=== PATIENT | female | born 1990 | race Two or more races ===

== ENCOUNTER 2025-08-22 13:33 | Outpatient (REF) | payer BC, SELFPAY ==
--- OUTSIDE RECORDS SUMMARY | 2025-08-20 21:06 | XMS_ITS | Continuity of Care Document ---
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 Role Phone Not on Staff, PCP Primary Care Physician Unavail able Encounter [facility] Date(s): 08/20/25 - 08/20/[address] [id number]- Encounter Diagnosis Migraine headache(Final) - 08/20/25 Vertigo, benign positional(Final) - 08/20/25 Discharge Disposition: A-D/C Home Attending Physician: Lisa Lutz MD Admitting Physician: Lisa Lutz MD Referring Physician: Not on Staff, Referring MD Encounter Type: Disch ES Allergies, Adverse Reactions, Alerts No Known Allergies Medications meclizine 25 mg oral tablet 1 tablet = 25 mg, By Mouth, 3 times a day, PRN for dizziness, # 30 tablet, 0 Refills, Maintenance, 08/20/25 8:37:00 PM EST, Tablet, [id number], Partial fill upon patient request if the prescription is for a schedule II opioid drug., 158, cm, 08/20/25 11:55:00 EST, Height, 100, kg, 08/20/25 11:55:00 EST, Dry Weight Start Date: 08/20/25 Status: Ordered Medication Dispense Status: Completed Quantity: 30.0 Unit: tablet Total Allowed Fills: 1 Fills Dispensed: 0 Mental Status Mental Status Assessment Assessment Assessment Component Result Effecti ve Date [place] coma score total 15 08/20/25 Problem List Condition Confirmation Course Effective Dates Status Health St atus Informant Severe obesity Confirmed Active Vital Signs Most recent to oldest [Reference Range]: 1 2 3 Height 158 cm (08/20/25 8:53 PM) 158 cm (08/20/25 11:55 AM) Weight 100 kg (08/20/25 8:53 PM) 100 kg (08/20/25 11:55 AM) Oxygen Saturation [94-100 %] 100 % (08/20/25 8:53 PM) 100 % (08/20/25 11:55 AM) 99 % (08/20/25 11:52 AM) Pulse Rate [55-90 bpm] 79 bpm (08/20/25 8:53 PM) 100 bpm *H* (08/20/25 11:55 AM) 118 bpm *H* (08/20/25 11:52 AM) Body Mass Index [18.5-24.99 kg/m2] 40.06 kg/m2 *H* (08/20/25 8:53 PM) 40.06 kg/m2 *H* (08/20/25 11:55 AM) Blood Pressure [90-138/55-84 mm Hg] 148/90mm Hg *H* (08/20/25 8:53 PM) 161/102mm Hg *H* (08/20/25 11:55 AM) Respiratory Rate [16-30 br/min] 18 br/min (08/20/25 8:53 PM) 18 br/min (08/20/25 11:55 AM) 18 br/min (08/20/25 11:52 AM) Temperature [96.8-100.4 DegF] 98.2 DegF (08/20/25 11:55 AM) Mode of Delivery (Oxygen) Room air (08/20/25 8:53 PM) Room air (08/20/25 11:55 AM) Room air (08/20/25 11:52 AM) Blood pressure sites Arm, left (08/20/25 8:53 PM) Arm, left (08/20/25 11:55 AM) Temperature Route Oral (08/20/25 11:55 AM) Dry Weight 100 kg (08/20/25 8:53 PM) 100 kg (08/20/25 11:55 AM) Weight Obtained Via Patient/family state d (08/20/25 11:55 AM) Dry Weight Obtained Via Patient/family s tated (08/20/25 11:55 AM) Social History Social History Type Response Sex Sex Representation Female (finding) Status Not Note * Brigette Gamboa: PERFORM Event Display: Patient Education Leaflets Authored Date: [id number] [facility] - If you need a Doctor or Clinic ?? 34 If You Need a Doctor or Clinic ?? Call [facility] PCP Assignment Line to help you find a doctor:?? [phone] ?? Clinics in [place], [place] For a full list of clinics:? [email or web address] ?? [facility]? [address] [phone] [facility]?[address]?[phone] [place] [address]?[address][phone] [facility]?[address][phone] [facility]?[address] [phone] [facility]?[address][phone] [facility], [facility]?[address][phone] [facility]?[address] [phone] [facility]? [address][phone] 4 [facility]?[address][phone] [facility]?[address][phone] [facility]?[address][phone] [facility]?[address][phone] [facility]? [address][phone] [facility]?[address][phone] ? * Brigette Gamboa: PERFORM Event Display: Patient Education Leaflets Authored Date: [id number] Migraine Headache ?? [id number] Migraine Headache A migraine headache is a type of headache that's often severe. It's different from other types of headaches because symptoms other than pain occur with it. For example, with a classic migraine headache visual symptoms (or aura), such as flashes of light, blind spots, or other vision changes, warn you a headache is coming on. Nausea and vomiting, lightheadedness, sensitivity to light or sound, andother visual problems are common migraine symptoms.??Talk to your health care provider to learn more about symptoms. The pain from a migraine may last from a few hours to several days. Migraine headaches affect women3 times more than men. It's not clear why migraines occur, but certain factors called triggers can raise the risk of having a migraine attack.??Migraine triggers include: ??? Emotional stress??or depression. ??? Hormone changes during the menstrual cycle. ??? Certain control pills. ??? Overuse of migraine medicines. ??? Alcohol or caffeine. ??? Foods with tyramine (see below for examples). ??? Eyestrain. ??? Weather changes. ??? Missed meals. ??? Too little sleep or too much sleep. Home care Follow these tips when taking care of yourself at home: ??? Don???t drive yourself home if you weregiven pain medicine for your headache or are having visual symptoms. Instead, have someone else drive you home. Try to sleep when you get home. You should feel much better when you wake up. ??? Cold can help ease migraine symptoms. Put an ice pack wrapped in a thin towel on your forehead or at the base of your skull. Put heat on the back of your neck to help ease any neck spasms. ??? Drink only clear liquids or eat a light diet until your symptoms get better. This will help you prevent nausea and vomiting. ?? How to prevent migraines Pay attention to what seems to cause your headache. Try to stay away from the triggers when you can. If you have headaches often, consider keeping a headache diary. In it, write down what you were doing, feeling, or eating in the hours before each headache. Show this to your health care provider tohelp find the cause of your headaches. If stress seems to be a trigger for your headaches, figure out what is causing stress in your life.Learn new ways to handle your stress. Ideas include regular exercise, biofeedback, self-hypnosis, yoga, and meditation. Talk with your provider to find out more information about managing stress. Many books and digital media are also available on this subject. Tyramine is a substance found in many foods. It can set off a migraine in some people. Foods that contain tyramine include: ??? Chocolate. ??? Yogurt. ??? All cheeses, but especially aged cheeses. ??? Smoked or pickled fishand meat, including glover, caviar, bologna, pepperoni, and salami. ??? Liver. ??? Avocados. ??? Bananas. ??? Figs. ??? Raisins. ??? Red wine. Try staying away from these foods for 1 to 2 months to see if you have fewer headaches. ?? How to treat future headaches ??? At the first sign of a headache, find a quiet, dark, comfortable place to sit or lie down. Let yourself relax or sleep. ??? Put an ice pack wrapped in a thin towel on your forehead or the area of greatest pain. A heating pad and massage may help if you are having amuscle spasm and tightness in your neck. ??? If you have been prescribed a medicine to stop a migraine headache, use this at the first warning sign of the headache for best results. The first signs may be an aura or pain. ??? If you have been prescribed a medicine, it's important to take it as directed. Many of these medicines may take a few weeks to start preventing headaches. So it's important to not give up on them right away. If you have taken these medicines for a while and you continue tohave just as many headaches, talk with your health care provider. The dose may need to be changed or you may need a different medicine. ??? If you need to take medicine often for your migraine, talk with your provider about other ways to prevent your headaches. ?? Follow-up care Follow up with your health care provider as advised. Talk with your provider if you have frequent headaches. They can figure out a treatment plan. Ask if you can have medicine to take at home the next time you get a bad headache. This may keep you from having to visit the emergency department in the future. You may need to see a headache specialist (neurologist) if you continue to have headaches. ?? When to get medical care Contact your health care provider right away??if any of these occur: ??? Head pain that gets worse,or doesn???t get better within 24 hours ??? Can???t keep liquids down (repeated vomiting) ??? Pain in your sinuses, ears, or throat ??? Fever of 100.4?? F (38?? C) or higher, or as advised by your provider ??? Stiff neck ??? Extreme drowsiness, confusion, or fainting ??? Dizziness, or dizziness with spinning sensation (vertigo) ??? Weakness or trouble feeling in an arm or leg, or on one side of your face ??? Trouble talking or seeing ?? Last Reviewed Date: 2025 00:00:00 ?? [id number] [employer]. All rights reserved. This information is not intended as a substitute for professional medical care. Always follow your healthcare professional's instructions. ?? * Keshawn MONTANO, Brigette Pretty: PERFORM Event Display: Patient Education Leaflets Authored Date: [id number] Benign Paroxysmal Positional Vertigo ?? [id number] Benign Paroxysmal Positional Vertigo Benign paroxysmal positional vertigo (BPPV) is a common condition. You feel as if the room is spinning after changing position, moving your head quickly, or even just rolling over in bed. Vertigo is a false feeling of motion plus disorientation that makes it seem as if the room is spinning. A vertigo attack may cause sudden nausea, vomiting, and heavy sweating. Severe vertigo causes aloss of balance. You may even fall down. Vertigo is caused by a problem with the inner ear. The inner ear is located behind the middle ear. It is a part of the balance center of the body. Vertigo can happen when small calcium stones move into an area of your inner ear called the semicircular canal. This may happen as a result of aging, head injury, or disease of the inner ear. Once that happens, moving your head in certain ways may cause the particles to stimulate the inner ear. This creates the feeling of vertigo. An episode of vertigo lasts only a few seconds to minutes. Once you are over the first episode of vertigo, it may never return. Sometimes symptoms return off and on for several weeks or longer. BPPV is treatable. The Umair maneuver is a simple treatment for the common cause of vertigo. Your doctor may try to put the calcium particles back in their correct position by having you do a series of head movements. Your doctor may have you do other types of maneuvers, depending on which canals the crystals are in. Home care Follow these guidelines when caring for yourself at home: ??? Rest quietly in bed if your symptoms are severe. Change position slowly. There is usually one position that will feel best. This might belying on one side or lying on your back with your head slightly raised on pillows. Until you have no symptoms, you are at a higher risk of falling. Let someone help you when you get up. Get rid of home hazards such as loose electrical cords and throw rugs. Don???t walk in unfamiliar areas that aren't lighted. Use night-lights in bathrooms and kitchen areas. ??? Don't drive or work with dangerous machinery for 1 week after symptoms go away, or as directed by your doctor. This is in case symptomsreturn suddenly. ??? Try repositioning maneuvers at home if your doctor instructs you to do so. ?? Follow-up care Follow up with your doctor or an ear, nose, and throat specialist (ENT or utilization engineer), or as directed. Tell your doctor about any ringing in your ear or hearing loss. If you had a CT or MRI scan, a specialist will review it. You'll be told of any new findings that may affect your care. ?? When to contact your doctor Contact your doctor right away if: ??? Your vertigo gets worse. ??? You have repeated vomiting. ???You have weakness that gets worse. ??? You have trouble hearing. ??? You have a fever of 100.4??F (38??C) or higher, or as directed by your doctor. ?? Call 911 Call 911 right away if: ??? You faint. ??? You have a severe headache, confusion, or abnormal drowsiness. ??? You have weakness of an arm or leg or one side of the face. ??? You have trouble??with speech or vision. ??? You have trouble walking. ??? You have a seizure. ??? You have a fast heart rate. ??? You have chest pain. ??? You are short of breath. ?? Last Reviewed Date: 2025 00:00:00 ?? [id number] [employer]. All rights reserved. This information is not intended as a substitute for professional medical care. Always follow your healthcare professional's instructions. ?? Patient Care team information Care Team Personnel Name: Not on Staff, PCP Position: S Physician (General Medicine) Member Role: PCP Insurance Providers Guarantor name: [employer] Information #: 1 Payer: [employer] Payer Identifier: Member Number: [id number] Group Number: [id number] Subscriber Identifier: [id number] Relationship to Subscriber: self Coverage Type: NA Coverage Verification Date: Telecom: Address: [facility] Information #: 2 [facility] [employer] [employer] Payer Identifier: Member Number: [id number] Group Number: Subscriber Identifier: [id number] Relationship to Subscriber: self Coverage Type: MEDICAID Coverage Verification Date: Telecom: Address:
[2025-08-22 17:53] LABS: Appearance Urine Cloudy; Glucose Urine UA Negative (Negative); PH 6.0 (5.0-9.0); Specific Gravity - Urine 1.020 (1.005-1.025); UMIC TRIGGER UACC YES
[2025-08-22 17:54] LABS: MANUAL DIFF FLAG NO
[2025-08-22 18:11] LABS: Hematocrit 38.7 % (37.0-47.0); Hemoglobin 11.6 g/dl (12.0-16.0); Imm Gran Abs Auto 0.03 X10*3/uL (0.00-0.03); Imm Gran Pct Auto 0.2 % (0.0-0.4); Lymphocytes Absolute Auto 3.5 X10*3/uL (1.2-4.9); Mean Corpuscular HGB Conc 30.0 g/dl (31.0-35.0); Mean Corpuscular Hemoglobin 23.3 pg (27.0-33.0); Mean Corpuscular Volume 77.9 fL (80.0-98.0); NRBC Abs Auto 0.000 X10*3/uL (0.0-0.012); NRBC Pct Auto 0.0 /100WBC (0.0-0.2); Platelet Count 390 X10*3/uL (160-400); Red Blood Count 4.97 X10*6/uL (4.20-5.50); White Blood Count 12.0 X10*3/uL (4.8-10.8)
[2025-08-22 18:35] LABS: Alanine Aminotransferase 20 U/L (0-31); Albumin Level 4.8 g/dL (3.5-5.0); Alkaline Phosphatase 85 U/L (39-117); Anion Gap 12 (12-20); Aspartate Amino Transferase 18 U/L (5-31); Blood Urea Nitrogen 13 mg/dL (9-16); Calcium 9.1 mg/dL (8.4-10.2); Carbon Dioxide 26 mmol/L (22-29); Chloride 106 mmol/L (96-108); Cholesterol 199 mg/dL (<200); Estimated Glomerular Filt Rate > 60; HDL Cholesterol 50 mg/dL (>40); Magnesium 2.1 mg/dL (1.6-2.6); Potassium 3.5 mmol/L (3.3-5.1); Sodium 140 mmol/L (135-145); Total Protein 7.8 g/dL (6.5-8.0); Triglycerides 115 mg/dL (<150)
[2025-08-22 19:01] LABS: Folate 10.8 ng/mL (> or = 4.0); Vitamin B12 533 pg/mL (200-900)
[2025-08-23 07:12] LABS: Total Hemoglobin (HGBA1C) 3036.8185 umol/L
[2025-08-23 10:35] LABS: HBS Num1 5.26 mIU/mL (0-7.99); HBsAGNum1 0.57 S/CO (0.00-0.99); HIV Num 1 0.07 S/CO (0.00-0.99); Hepatitis B Surface Antigen Negative (Negative); ~HepC Num1 0.07 S/CO (0.00-0.79); ~Hepatitis B Surface Antibody NONREACTIVE (Nonreactive); ~Hepatitis C Antibody Nonreactive (Nonreactive)
[2025-08-26 13:07] LABS: VITAMIN D (1,25 OH) D3 99 pg/mL; Vit D (1,25-Dihydroxy) Total 99 pg/mL (18-72); Vitamin D (1,25 OH) D2 <8 pg/mL
== END 2025-08-22 13:34 | disposition home or self-care (01) ==
LOC: HO.HKASLDS 13:33
PROVIDERS: PCP Student in an Organized Health Care Education/Training Program; Visit Provider Student in an Organized Health Care Education/Training Program
DX: R42 Dizziness and giddiness (principal); G43.109 Migraine with aura, not intractable, without status migrainosus; H53.143 Visual discomfort, bilateral; R11.0 Nausea; E78.5 Hyperlipidemia, unspecified; Z13.1 Encounter for screening for diabetes mellitus
CPT/HCPCS: 36415; 80053; 80061; 81001; 82607; 82652; 82746; 83036; 83735; 84443; 85025; 86706; 86803; 87340; 87389; 96127

== ENCOUNTER 2025-08-22 13:33 | Outpatient (AMB) | payer BC, SELFPAY ==
--- NOTE | 2025-08-22 13:38 | MHC.PC.OV ---
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 Competency Evaluated Nurse Aide Required: No Accompanied by: Self / Same As Patient Allergies No Known Allergies Allergy (Verified 08/22/25 13:39) Medication List - Last Reconciled 08/22/25 by Jose Camargo MD ondansetron 4 mg PO Q8H PRN sumatriptan succinate 50 mg orally; Tobacco use date assessed: 08/22/25 Dental Screening Dental Screen Date: 08/22/25 Did you have a dental visit in the last 12 months?: No Did you have a dental problem in the last 6 months where you did not have access to dental care?: Yes Was dental information given to patient?: No HPI HPI Comments History of Present Illness Details History of Present Illness The patient is a 35-year-old female presenting for evaluation of a migraine headache with vertigo and dizziness. Migraine with aura: The patient reports a history of migraines that began after the of her first child and have progressively worsened in severity and frequency over the years, with three debilitating episodes this year. The current episode started on the evening of August 18, accompanied by vertigo, vomiting, and nausea. She visited the emergency department two days ago, where the migraine was treated with Reglan and another unspecified medication, but she has had continued dizziness since. The patient describes an aura of neck pain, followed by a debilitating headache located retro-orbitally and in the temples, with a pain score way beyond 10. Associated symptoms include photophobia and phonophobia, requiring her to lie down in a dark room for a full day. She reports feeling sluggish with a poor appetite since the onset. Prior management has been limited to [id number] medications such as Tylenol, Excedrin, and ibuprofen up to 600 mg, which provide minimal relief. She has never used triptan medications, as her migraines occurred during periods of and . Health Maintenance: The patient is a 35-year-old female who has not seen a doctor for routine care since her visits, with her last visit being approximately two years ago. During her pregnancies, she was close to developing preeclampsia and gestational diabetes. Her last Pap smear was performed in 2021. Surgical History: No prior surgical history reported. Medications: - Meclizine, as needed for dizziness - Ibuprofen 400-600 mg, as needed for headache - Acetaminophen (Tylenol/Excedrin), as needed for headache - Ondansetron (Zofran), previously used for nausea Social History: - Functional Status: Reports feeling sluggish and not wanting to do much recently. - Nutritional Intake: Reports poor appetite with only small nibbles of food. - Sleep: Reports poor sleep for the past couple of days. - Family Planning: Patient reports she is done having children and her partner has had a vasectomy. Family History: No family history was discussed. Diagnostic Results: - Recent ER visit: A CBC and basic metabolic panel were performed; results were not discussed. - Recent ER visit: An EKG was performed instead of a requested CT scan; no arrhythmias were noted. Past Medical History - Migraines with aura, which began after her first child. - History of headaches in her youth. - History of pregnancies complicated by being close to developing preeclampsia and gestational diabetes. - Denies history of hypertension, diabetes, seizures, or heart disease. - Last Pap smear was in 2021. - Received Reglan and another unspecified medication during an ER visit two days prior. Health Maintenance - Comprehensive blood work, including CBC, CMP, HbA1c, lipid panel, thyroid panel, B12, folate, vitamin D, and hepatitis screening, is ordered for today. - A referral will be placed for a routine Pap smear. - The patient is instructed to establish a patient portal account for communication. - Follow up in two weeks to review lab results and reassess symptoms. [facility] [place] Medical History (Updated 08/22/25 @ 14:27 by Jose Camargo MD) Cervical cancer screening Migraine Family History (Updated 08/22/25 @ 13:55 by Pipe Dimas MA) Father No problems noted. Mother Breast cancer Diabetes Depression Anxiety Social History Housing: House Patient Tobacco Use Status: Never used Tobacco service: No Current occupational status: unemployed Cognitive needs: No Hearing needs: No Vision needs: Yes (glasses for driving) Questionnaire PHQ-9 Over the last 2 weeks, how often have you been bothered by any of the following problems? 1. Little interest or pleasure in doing things: several days 2. Feeling down, depressed, or hopeless: several days 3. Trouble falling or staying asleep, or sleeping too much: several days 4. Feeling tired or having little energy: several days 5. Poor appetite or overeating: several days 6. Feeling bad about yourself - or that you are a failure or have let yourself or your family down: not at all 7. Trouble concentrating on things, such as reading the newspaper or watching television: several days 8. Moving or speaking so slowly that other people could have noticed. Or the opposite - being so fidgety or restless that you have been moving around a lot more than usual: several days 9. Thoughts that you would be better off or of hurting yourself in some way: not at all Total score: 7 Depression Screening Interpretation: Negative Depression Screening Done: Yes Source: Developed by Drs. Peter Worley, Soledad May, Raul Mckinley and colleagues, with an educational maria elena from [employer]. Thrive Questionnaire Date Thrive assessed: 08/22/25 I am a: Patient What is your living situation today?: I have a steady place to live Within the past 12 months, did the food you bought not last and you didn't have the money to get more?: Never true Within the past 12 months, did you worry whether your food would run out before you got money to buy more?: Never true Do you have trouble paying for medicines?: No Do you have trouble getting transportation to medical appointments?: No Do you have trouble paying your heating and electricity bill?: No Do you have trouble taking care of your child, family member or friend?: No Are you currently unemployed and looking for a job?: I choose not to answer this question Are you interested in more education?: I choose not to answer this question Please select the resources that you would like help with: None Currently or been in a relationship where the following occur: No concerns reported THRIVE Score: 0 AUDIT C Alcohol Use Questionnaire (AUDIT-C) 1. How often do you have a drink containing alcohol?: Monthly or less 2. How many drinks containing alcohol do you have on a typical day when you are drinking?: 1 or 2 3. How often do you have six or more drinks on one occasion?: Never Total Score: 1 MELODY-7 AMB Questionnaire MELODY-7 Feeling nervous, anxious, or on edge: 1 = Several days Not being able to stop or control worryin = Not at all Worrying too much about different things: 0 = Not at all Trouble relaxin = Not at all Being so restless that it is hard to sit still: 0 = Not at all Becoming easily annoyed or irritable: 0 = Not at all Feeling afraid as if something awful might happen: 0 = Not at all Total MELODY-7 score (0-4 normal; 5-9 mild; 10-14 moderate; 15-21 severe): 1 Source: Developed by Drs. Peter Worley, Soledad May, Raul Mckinley and colleagues, with an educational maria elena from [employer]. Review of Systems Narrative Review of Systems - Constitutional: Reports feeling sluggish and sleeping poorly. Denies fevers. - Neurological: Reports headache, dizziness, vertigo, and neck pain. Denies seizures. - HEENT: Reports photophobia and phonophobia. - Cardiovascular: Denies chest pain or arrhythmias. - Gastrointestinal: Reports nausea, vomiting, and poor appetite. - Musculoskeletal: No lower extremity swelling reported. 10-point ROS reviewed and negative except as noted in HPI Physical exam (Primary Care) Vital Signs: Last Vital Signs Temp 98.7 F 08/22/25 13:53 Pulse 83 08/22/25 13:53 Resp 16 08/22/25 13:53 BP 131/76 08/22/25 13:53 Pulse Ox 97 08/22/25 13:53 Oxygen Delivery Method Room Air 08/22/25 13:53 BMI result Body Mass Index 36.3 Tobacco/Smoking Status: Tobacco use Status Tobacco use date assessed 08/22/25 08/22/25 13:41 Patient Tobacco Use Status Never used Tobacco 08/22/25 13:41 PHQ-9: PHQ-9 Score PHQ-9: Total score 7 08/22/25 13:41 Depression Screening Interpretation: Negative Thrive Assessment: Date of Thrive Assessment Date Thrive assessed 08/22/25 08/22/25 13:41 Currently or been in a relationship where the following occur: No concerns reported Narrative Physical Exam General: Well-appearing, in no acute distress. Vital signs: Within normal limits. HEENT: Normocephalic, atraumatic. PERRLA, EOMI. Conjunctiva clear, sclera anicteric. Oropharynx clear, mucous membranes moist. TMs intact bilaterally. Neck: Supple, no lymphadenopathy, no thyromegaly, no JVD or carotid bruits. Cardiovascular: RRR, normal S1/S2, no murmurs, rubs, or gallops. Peripheral pulses 2+ and symmetric. No edema. Respiratory: Lungs clear to auscultation bilaterally, no wheezes, rales, or rhonchi. Normal effort. Abdomen: Soft, non-tender, non-distended. Normoactive bowel sounds. No hepatosplenomegaly, no masses. MSK: Full range of motion, no joint swelling or deformity. Normal gait. Skin: Warm, dry, intact. No rashes, lesions, or pallor. Neuro: Alert and oriented x3. Cranial nerves II-XII intact. Strength 5/5 throughout. Sensation intact. Reflexes 2+ symmetric. Normal coordination and gait. Psych: Appropriate mood and affect. Normal judgment and insight. Coding Level of Care Code New Pt Level 4 ([id number]) Diagnoses Migraine G43.909 Cervical cancer screening Z12.4 Photophobia of both eyes H53.143 Vertigo R42 Nausea R11.0 Assessment & Plan Assessment & Plan (1) Migraine: Code(s): G43.909 - Migraine, unspecified, not intractable, without status migrainosus Category: Medical (2) Cervical cancer screening: Code(s): Z12.4 - Encounter for screening for malignant neoplasm of cervix Category: Medical (3) Photophobia of both eyes: Code(s): H53.143 - Visual discomfort, bilateral (4) Vertigo: Code(s): R42 - Dizziness and giddiness (5) Nausea: Code(s): R11.0 - Nausea Plan Consent The proposed plan of care, including new medications and comprehensive lab work, was discussed with the patient. The patient and her partner verbalized understanding and agreement with the plan. Patient was informed and verbally consented to the use of an ambient scribe for clinic note documentation during this visit. Plan 1. Migraine With Aura - Will prescribe sumatriptan 50 mg for abortive migraine therapy. The patient is instructed to take one tablet at onset and may repeat the dose after two hours if needed, not to exceed 200 mg in a 24-hour period. - A prescription for Zofran (ondansetron) will be sent to the pharmacy for nausea. - The patient can continue taking meclizine, which she received from the ER, for dizziness. - Prophylactic medication, such as topiramate or propranolol, will be considered at follow-up. - A CT scan of the head is not indicated at this time in the outpatient setting. Discussion Notes I have diagnosed the patient with migraine with aura, based on her classic presentation of neurological symptoms preceding a debilitating headache. We discussed initiating abortive therapy with sumatriptan 50 mg, and I educated her on the dosing, including the option to repeat the dose after two hours if ineffective, with a maximum daily dose of 200 mg. I will also prescribe ondansetron for nausea. Regarding her concern about not receiving a CT scan in the ER, I explained that while it might have been reasonable in that acute setting, it is not clinically indicated now given her non-focal neurological exam. I recommended comprehensive lab work to establish a baseline and a referral for a routine Pap smear for health maintenance. I advised her to set up a patient portal account for easy communication and to follow up in two weeks to review the test results and re-evaluate her migraines. The patient and her partner verbalized understanding and agreement with the plan. Patient Instructions - Take one sumatriptan 50 mg tablet at the start of a migraine headache. You can take a second tablet two hours later if the first one does not help. Do not take more than 200 mg (four 50 mg tablets) in a 24-hour period. - A prescription for Zofran will be sent to your pharmacy for nausea. - You can continue to take the meclizine you were given for dizziness as needed. - Please go to the lab next to our office today to have your blood drawn. - Our office will refer you for a Pap smear. - Please set up your patient portal account to communicate with our office. - Schedule a follow-up visit in two weeks to review your lab results. Medical Decision Making The patient is a 35-year-old female presenting as a new patient for evaluation of a recent severe headache episode. Her clinical history of progressively worsening headaches, with aura (neck pain), photophobia, phonophobia, and associated nausea/vomiting, is classic for migraine with aura. Given the debilitating nature of her symptoms and the failure of [id number] analgesics, initiating abortive therapy with a triptan is warranted. Sumatriptan 50 mg is an appropriate choice, as she has no reported contraindications, such as a history of hypertension or heart disease. Associated symptoms of nausea and persistent dizziness will be managed with ondansetron and continuation of the meclizine she received from the ER. Although a head CT was requested at the ER, her current non-focal neurological exam and typical migraine history do not support the need for urgent neuroimaging in the outpatient setting. Comprehensive lab work is indicated to establish a baseline for this new patient and screen for any underlying contributors to her symptoms or general health status. Routine health maintenance, including a Pap smear referral, is also appropriate. Follow-up in two weeks is planned to assess her response to treatment and review lab results, at which time the need for prophylactic migraine medication can be determined. Total time spent caring for the patient today was 30 minutes. This includes time spent before the visit reviewing the chart, time spent documenting, and time spent reviewing laboratory results, diagnostic imaging, medications, performing a medically necessary evaluation, counseling on diagnoses, care coordination. Orders: Orders Complete Blood Count Auto Diff Today Z13.9 - Encounter for screening, unspecified Hepatitis B Surface Antigen Today Z13.9 - Encounter for screening, unspecified Hepatitis C Antibody Today Z13.9 - Encounter for screening, unspecified Vitamin B12 and Folate Today Z13.9 - Encounter for screening, unspecified HIV Ab/Ag Today Z13.9 - Encounter for screening, unspecified Magnesium Today Z13.9 - Encounter for screening, unspecified Comprehensive Met. 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
[2025-08-22 13:53] VITALS: BP 131/76; PULSE 83; RESP 16; TEMP 37.1; O2SAT 97; BMI 36.3
== END 2025-08-22 14:25 | disposition home or self-care (01) ==
LOC: HO.HMCFMS 13:34
PROVIDERS: Visit Provider Student in an Organized Health Care Education/Training Program
DX: G43.909 Migraine, unspecified, not intractable, without status migrainosus (principal); Z12.4 Encounter for screening for malignant neoplasm of cervix; H53.143 Visual discomfort, bilateral; R42 Dizziness and giddiness; R11.0 Nausea

== ENCOUNTER 2025-09-13 14:02 | Outpatient (AMB) | payer BC, SELFPAY ==
--- NOTE | 2025-09-13 14:10 | A.OFFPC_ITS ---
Vital Signs 09/13/25 14:15 Height 5 ft 4.17 in Weight 217 lb BMI 37.0 BP 125/61 Blood Pressure Location Lt brachial Position Sitting Respiration 16 Pulse 79 Pulse Source Monitor Temp 98.3 F Temp Source Oral Pulse Oximetry (%) 98 Oxygen Delivery Method Room Air Intake Visit Reasons: r/s from 09/06/25 - lab review Intake Note: lab review, patient is still having an earache Rn Prior Authorization Required: No Accompanied by: Self / Same As Patient Allergies No Known Allergies Allergy (Verified 09/13/25 14:13) Medication List - Last Reconciled 09/13/25 by Jose Camargo MD ascorbic acid (vitamin C) 500 mg PO DAILY ferrous sulfate 325 mg PO DAILY ondansetron 4 mg PO Q8H PRN sumatriptan succinate 50 mg PO Q2-4H PRN Tobacco use date assessed: 08/22/25 Dental Screening Dental Screen Date: 08/22/25 HPI HPI Comments History of Present Illness Details History of Present Illness The patient is a 35 year old individual presenting for review of laboratory results. Iron deficiency anemia: The patient has a history of iron deficiency during and reports being a heavy bleeder during menstrual cycles. Hyperlipidemia: Recent lab results show an LDL cholesterol of 126 mg/dL and total cholesterol of 199 mg/dL. The patient acknowledges a diet that includes cheese. Otalgia (ear ache): The patient reports a bothersome ache in the left ear, which was also noted during previous migraine episodes. The pain is primarily felt when outside and is rated as a 4-5 out of 10 on the pain scale at its worst. The patient has not taken any medication for the ear pain. Headache: The patient reports a history of migraines but states current headaches are less severe and not migrainous in nature. Social History: - Diet: The patient's diet includes tito se. Diagnostic Results: - CBC: Shows an elevated white blood yanna l count. - Red blood cell indices (MCV, MCH) are indicative of iron deficiency anemia. - BMP: Electrolytes and kidney function are good. - Glucose: Random glucose and Hemoglobin A1c are within normal limits. - Minerals: Calcium and magnesium are go od. - LFTs: ALT and AST are noted to be grea t. - Lipid Panel: Total cholesterol is 199 mg/dL, LDL is 126 mg/dL, and HDL is 50 mg/dL. - Vitamin D: Level is elevated at 99 (ra nge 18-72). - Folate and Thyroid function: Levels ar e good. - Urinalysis: Trace leukocyte esterase n oted. - Infectious Disease Screen: Hepatitis B , Hepatitis C, and HIV are negative. Past Medical History - Iron deficiency anemia during pregnanc y - Migraines Health Maintenance - Discussed laboratory results, includin g indicators for iron deficiency anemia and elevated LDL cholesterol. - Recommended dietary changes, including reducing cheese intake and increasing consumption of iron-rich foods such as broccoli, spinach, liver, beans, and lentils. - Recommended follow-up labs in 3 to 6 m [facility]. [facility] Medical History (Updated 09/13/25 @ 14:18 by Jose Camargo MD) Class 2 obesity Hypervitaminosis D Iron deficiency anemia Hyperlipidemia Cervical cancer screening Migraine Family History Father No problems noted. Mother Breast cancer Diabetes Depression Anxiety Social History (Updated 09/13/25 @ 14:15 by Joe Schwartz CMA) Housing: House Alcohol intake: current Comment: sometimes Patient Tobacco Use Status: Never used Tobacco e-Cigarette/Vaping Use: Never Used Substance Use Type: Marijuana service: No Current occupational status: unemployed Cognitive needs: No Hearing needs: No Vision needs: Yes (glasses for driving) Questionnaire Thrive Questionnaire Date Thrive assessed: 08/22/25 I am a: Patient What is your living situation today?: I have a steady place to live Within the past 12 months, did the food you bought not last and you didn't have the money to get more?: Never true Within the past 12 months, did you worry whether your food would run out before you got money to buy more?: Never true Do you have trouble paying for medicines?: No Do you have trouble getting transportation to medical appointments?: No Do you have trouble paying your heating and electricity bill?: No Do you have trouble taking care of your child, family member or friend?: No Are you currently unemployed and looking for a job?: I choose not to answer this question Are you interested in more education?: I choose not to answer this question Please select the resources that you would like help with: None Currently or been in a relationship where the following occur: No concerns reported THRIVE Score: 0 Review of Systems Narrative Review of Systems - Constitutional: Denies symptoms of infection. - Neurological: Reports having headaches, but they are not migraines. - ENT: Reports an ache in the left ear. - Denies ringing in the ears or dizziness. - Genitourinary: Reports heavy menstrual bleeding. - Denies dysuria, urinary frequency, or malodorous urine. 10-point ROS reviewed and negative except as noted in HPI Physical exam (Primary Care) BMI result Body Mass Index 37.0 Tobacco/Smoking Status: Tobacco use Status Tobacco use date assessed 08/22/25 09/13/25 14:10 Patient Tobacco Use Status Never used Tobacco 09/13/25 14:15 Thrive Assessment: Date of Thrive Assessment Date Thrive assessed 08/22/25 09/13/25 14:10 Currently or been in a relationship where the following occur: No concerns reported Narrative Physical Exam General: Well-appearing, in no acute distress. Vital signs: Within normal limits. HEENT: Normocephalic, atraumatic. PERRLA, EOMI. Conjunctiva clear, sclera anicteric. Oropharynx clear, mucous membranes moist. TMs intact bilaterally. Note: Patient reports left ear ache with pain rated at 5/10, especially when outside. No ringing or dizziness reported. Neck: Supple, no lymphadenopathy, no thyromegaly, no JVD or carotid bruits. Cardiovascular: RRR, normal S1/S2, no murmurs, rubs, or gallops. Peripheral pulses 2+ and symmetric. No edema. Respiratory: Lungs clear to auscultation bilaterally, no wheezes, rales, or rhonchi. Normal effort. Abdomen: Soft, non-tender, non-distended. Normoactive bowel sounds. No hepatosplenomegaly, no masses. MSK: Full range of motion, no joint swelling or deformity. Normal gait. Skin: Warm, dry, intact. No rashes, lesions, or pallor. Neuro: Alert and oriented x3. Cranial nerves II-XII intact. Strength 5/5 throughout. Sensation intact. Reflexes 2+ symmetric. Normal coordination and gait. Psych: Appropriate mood and affect. Normal judgment and insight. Coding Level of Care Code Est Pt Level 3 (56705) Diagnoses Hyperlipidemia E78.5 Iron deficiency anemia D50.9 Hypervitaminosis D E67.3 Class 2 obesity E66.812 Migraine G43.909 Assessment & Plan Assessment & Plan (1) Hyperlipidemia: Code(s): E78.5 - Hyperlipidemia, unspecified Category: Medical (2) Iron deficiency anemia: Code(s): D50.9 - Iron deficiency anemia, unspecified Category: Medical (3) Hypervitaminosis D: Code(s): E67.3 - Hypervitaminosis D Category: Medical (4) Class 2 obesity: Code(s): E66.812 - Obesity, class 2 Category: Medical (5) Migraine: Code(s): G43.909 - Migraine, unspecified, not intractable, without status migrainosus Category: Medical Plan Consent Patient was informed and verbally consented to the use of an ambient scribe for clinic note documentation during this visit. Plan 1. Iron Deficiency Anemia - Initiate supplementation with iron and vitamin C. - Educated the patient on taking vitamin C before the iron supplement, and taking iron one hour before or two hours after a meal. - Counseled on potential side effects, including constipation and dark stools, and advised increasing fluid and fiber intake. - Advised increasing dietary intake of iron-rich foods. - Plan to repeat labs in 3 to 6 months for re-evaluation. 2. Hyperlipidemia - Recommended dietary and lifestyle changes to manage elevated LDL cholesterol. - Specifically advised the patient to reduce intake of cheese. - No medication is indicated at this time. 3. Otalgia, Left Ear - Advised trial of Tylenol or ibuprofen as needed for pain management. - Instructed the patient to return for follow-up if the ear pain continues, at which point a referral to an ENT specialist will be considered. 4. Leukocytosis And Abnormal Urinalysis - The elevated white blood cell count and trace leukocyte esterase in the urine are considered clinically insignificant as the patient is asymptomatic for infection. - No further workup or treatment is planned at this time. Discussion Notes I reviewed the patient's lab results in detail. I explained that the patient's blood work indicates iron deficiency anemia, likely related to heavy menstrual cycles, and recommended starting iron and vitamin C supplements. I provided education on how to take the supplements and potential side effects such as constipation and dark stools, and recommended increasing fluid and fiber intake. We discussed the elevated LDL cholesterol, which can be managed with dietary changes, specifically by reducing cheese consumption. I noted the elevated vitam in D and asymptomatic lab abnormalities (WBC, urinalysis) which do not require intervention at this time. Regarding the complaint of a left earache, my physical exam was normal. I advised a trial of pnue-ryq-intethh analgesics like Tylenol or ibuprofen and instructed the patient to return if symptoms persist, for a potential ENT referral. We agreed to repeat labs in 3-6 months to monitor the anemia and cholesterol. Patient Instructions - Begin taking an iron supplement with Vitamin C to treat your iron deficiency. - Take the Vitamin C first, then take the iron one hour before you eat or two hours after you eat. - The iron supplement may cause constipation and may turn your stool dark. - To help with constipation, increase the amount of water and fiber you consume. - Increase iron-rich foods in your diet, such as broccoli, spinach, liver, beans, and lentils. - To help lower your cholesterol, try to cut down on your intake of cheese. - For your earache, you may try taking Tylenol or ibuprofen for the pain. - If your earache does not get better, please come back to the clinic for a follow-up visit. - We will need to repeat your lab work in 3 to 6 months. Medical Decision Making The patient, a 35 year old individual, presented for a review of lab results. The patient's lab findings of low hemoglobin/MCV/MCH, coupled with a history of menorrhagia, support a diagnosis of iron deficiency anemia. The plan is to replete iron stores with oral supplementation and dietary counseling, with follow-up labs in 3-6 months to assess response. The patient's LDL cholesterol is mildly elevated at 126 mg/dL, which does not warrant pharmacotherapy at this time. Given the HDL of 50 mg/dL, the most appropriate initial management is lifestyle and dietary modification, focusing on reducing saturated fat intake from sources like cheese. The patient's new complaint of a left earache was evaluated. The physical examination of the ear was unremarkable. Given the normal exam, the initial plan is symptomatic management with analgesics and observation, with a plan for ENT referral if symptoms persist. Other lab abnormalities, including a mild leukocytosis and trace leukocyte esterase, are clinically insignificant in the absence of corresponding symptoms of infection and require no further action. Total Time Statement 20 min Total time spent caring for the patient today includes pre-visit chart review, documentation, review of laboratory and diagnostic imaging results, medication reconciliation, medically necessary evaluation, counseling on diagnoses, care coordination, ordering appropriate tests and medications, review of tests performed by other providers, reporting test results to the patient, and communication with other healthcare providers. Medications: New ferrous sulfate 325 mg PO DAILY 90 tabs 0RF ascorbic acid (vitamin C) 500 mg PO DAILY 90 tabs 0RF
[2025-09-13 14:15] VITALS: BP 125/61; PULSE 79; RESP 16; TEMP 36.8; O2SAT 98; BMI 37.0
== END 2025-09-13 14:26 | disposition home or self-care (01) ==
LOC: HO.HMCFMS 14:03
PROVIDERS: PCP Student in an Organized Health Care Education/Training Program; Visit Provider Student in an Organized Health Care Education/Training Program
DX: E78.5 Hyperlipidemia, unspecified (principal); D50.9 Iron deficiency anemia, unspecified; E67.3 Hypervitaminosis D; E66.812 Obesity, class 2; G43.909 Migraine, unspecified, not intractable, without status migrainosus

== ENCOUNTER 2025-09-20 15:04 | Outpatient (AMB) | payer BC, SELFPAY ==
--- NOTE | 2025-09-20 15:23 | A.OFFPC_ITS ---
Vital Signs 09/20/25 15:26 Height 5 ft 4.17 in Weight 215 lb 8 oz BMI 36.8 BP 125/58 L Blood Pressure Location Rt brachial Position Sitting Respiration 20 Pulse 79 Pulse Source Pulse Oximeter Temp 98.5 F Temp Source Oral Pulse Oximetry (%) 98 Oxygen Delivery Method Room Air Intake Visit Reasons: Sleep apnea and ADHD Intake Note: sleep apnea and adhd/ also having pain on the top of her foot Whizzer Required: No Accompanied by: Self / Same As Patient Allergies No Known Allergies Allergy (Verified 09/20/25 15:25) Medication List - Last Reconciled 09/20/25 by Jose Camargo MD ascorbic acid (vitamin C) 500 mg PO DAILY ferrous sulfate 325 mg PO DAILY ondansetron 4 mg PO Q8H PRN sumatriptan succinate 50 mg PO Q2-4H PRN Tobacco use date assessed: 08/22/25 Dental Screening Dental Screen Date: 08/22/25 HPI HPI Comments History of Present Illness Details History of Present Illness The patient is a 35 year old individual presenting for evaluation of potential sleep apnea, suspected Attention-Deficit Hyperactivity Disorder (ADHD), and right foot pain. Suspected sleep apnea: The patient's has reported that the patient stops breathing multiple times throughout the night, particularly when lying on the back. The patient also snores a lot and feels tired most days upon waking. Suspected Attention-Deficit Hyperactivity Disorder (ADHD): The patient believes the patient has ADHD, citing difficulty completing tasks at home and being easily distracted by children and other responsibilities. The patient feels as though the patient is never on top of things. The patient has a family history of ADHD, with the patient's mother being diagnosed in her 50s. Right foot pain: The patient reports sharp pain on the top of the right foot, which has been present for approximately two months. The pain is particularly noticeable upon first stepping on the foot, such as after waking, and it takes a few steps to ease. The pain is localized to the top of the foot and does not occur on the plantar surface. Social History: - The patient has children at home. - The patient resides in [place]. Family History: - The patient's mother was diagnosed wit h ADHD late in life, in her 50s. Past Medical History Health Maintenance [facility] Medical History (Updated 09/20/25 @ 15:37 by Jose Camargo MD) Pain of right midfoot Sleep apnea Class 2 obesity Hypervitaminosis D Iron deficiency anemia Hyperlipidemia Cervical cancer screening Migraine Family History Father No problems noted. Mother Breast cancer Diabetes Depression Anxiety Social History (Updated 09/13/25 @ 14:15 by Joe Schwartz CMA) Housing: House Alcohol intake: current Comment: sometimes Patient Tobacco Use Status: Never used Tobacco e-Cigarette/Vaping Use: Never Used Substance Use Type: Marijuana service: No Current occupational status: unemployed Cognitive needs: No Hearing needs: No Vision needs: Yes (glasses for driving) Questionnaire Thrive Questionnaire Date Thrive assessed: 08/22/25 I am a: Patient What is your living situation today?: I have a steady place to live Within the past 12 months, did the food you bought not last and you didn't have the money to get more?: Never true Within the past 12 months, did you worry whether your food would run out before you got money to buy more?: Never true Do you have trouble paying for medicines?: No Do you have trouble getting transportation to medical appointments?: No Do you have trouble paying your heating and electricity bill?: No Do you have trouble taking care of your child, family member or friend?: No Are you currently unemployed and looking for a job?: I choose not to answer this question Are you interested in more education?: I choose not to answer this question Please select the resources that you would like help with: None Currently or been in a relationship where the following occur: No concerns reported THRIVE Score: 0 Review of Systems Narrative Review of Systems - General: Reports feeling tired most days. - Respiratory: Reports significant snoring and -witnessed apneic episodes at night. - Musculoskeletal: Reports sharp pain on the top of the right foot for about two months, worse with initial steps. Denies pain in the plantar aspect of the foot. - Psychiatric/Neurological: Reports difficulty completing tasks and being easily distracted. 10-point ROS reviewed and negative except as noted in HPI Physical exam (Primary Care) Vital Signs: Last Vital Signs Temp 98.5 F 09/20/25 15: Pulse 79 09/20/25 15:26 Resp 20 09/20/25 15:26 BP 125/58 L 09/20/25 15:26 Pulse Ox 98 09/20/25 15:26 Oxygen Delivery Method Room Air 09/20/25 15:26 BMI result Body Mass Index 36.8 Tobacco/Smoking Status: Tobacco use Status Tobacco use date assessed 08/22/25 09/20/25 15:28 Patient Tobacco Use Status Never used Tobacco 09/20/25 15:28 e-Cigarette/Vaping Use Never Used 09/20/25 15:28 Thrive Assessment: Date of Thrive Assessment Date Thrive assessed 08/22/25 09/20/25 15:28 Currently or been in a relationship where the following occur: No concerns reported Narrative Physical Exam General: Well-appearing, in no acute distress. Vital signs: Within normal limits. HEENT: Normocephalic, atraumatic. PERRLA, EOMI. Conjunctiva clear, sclera anicteric. Oropharynx clear, mucous membranes moist. TMs intact bilaterally. Neck: Supple, no lymphadenopathy, no thyromegaly, no JVD or carotid bruits. Cardiovascular: RRR, normal S1/S2, no murmurs, rubs, or gallops. Peripheral pulses 2+ and symmetric. No edema. Respiratory: Lungs clear to auscultation bilaterally, no wheezes, rales, or rhonchi. Normal effort. Abdomen: Soft, non-tender, non-distended. Normoactive bowel sounds. No hepatosplenomegaly, no masses. MSK: Full range of motion, no joint swelling or deformity. Normal gait. Reports sharp pain on the top of the right foot, particularly when first stepping on it, ongoing for two months. No pain upon palpation. Skin: Warm, dry, intact. No rashes, lesions, or pallor. Neuro: Alert and oriented x3. Cranial nerves II-XII intact. Strength 5/5 throughout. Sensation intact. Reflexes 2+ symmetric. Normal coordination and gait. Psych: Appropriate mood and affect. Normal judgment and insight. Coding Level of Care Code Est Pt Level 3 (50469) Diagnoses Sleep apnea G47.30 Pain of right midfoot M79.671 Class 2 obesity E66.812 Right foot pain M79.671 Assessment & Plan Assessment & Plan (1) Sleep apnea: Code(s): G47.30 - Sleep apnea, unspecified Category: Medical (2) Pain of right midfoot: Code(s): M79.671 - Pain in right foot Category: Medical (3) Class 2 obesity: Code(s): E66.812 - Obesity, class 2 Category: Medical (4) Right foot pain: Code(s): M79.671 - Pain in right foot Plan Consent Patient was informed and verbally consented to the use of an ambient scribe for clinic note documentation during this visit. Plan 1. Suspected Sleep Apnea - A home sleep study will be ordered. - A referral to Sleep Medicine will be placed. 2. Suspected Attention-Deficit Hyperactivity Disorder (Adhd) - A referral will be made to [facility] for a formal evaluation. - The patient was advised to ensure the evaluation notes are sent for review. 3. Right Foot Pain - An X-ray of the right foot will be ordered to rule out a bone spur or other abnormalities. - The patient was provided with a paper order for the X-ray to be done at [facility]. - A referral to Podiatry will be placed. Discussion Notes I discussed my assessment and plan with the patient regarding the three primary concerns. For the suspected sleep apnea, I explained that we would proceed with a home sleep study and a referral to a sleep medicine specialist. For the concerns about ADHD, I recommended a formal evaluation and provided a referral to [facility], noting their efficiency and telehealth options. I requested that the patient ask the specialists to forward their notes to me for continuity of care. Regarding the right foot pain, I explained the need for an X-ray to rule out a bone spur and provided a paper referral for the imaging at an outside facility, as well as a referral to a paint formulator. The patient understood the plan and agreed to proceed. Patient Instructions - You will be referred for a home sleep study to check for sleep apnea. - You will also receive a referral to a sleep medicine specialist. - Please contact [facility] at [phone] to schedule an evaluation for ADHD. - Please ask the ADHD specialists to send a copy of their notes to our office. - You have been given a paper order for an X-ray of your right foot. Please go to [facility] at [address] [place] [address] to have this done. - You will be referred to a paint formulator (foot and ankle specialist) for your foot pain. Medical Decision Making The patient is a 35-year-old individual presenting with three distinct issues: symptoms suggestive of obstructive sleep apnea, concerns for ADHD, and chronic right foot pain. The patient's report of -witnessed apneas, snoring, and daytime fatigue is highly suspicious for sleep apnea, warranting a home sleep study and specialist consultation. The symptoms of distractibility and difficulty with task completion, along with a positive family history, justify a formal evaluation for ADHD; therefore, a referral for neuropsychological testing is indicated. The two-month history of sharp pain on the dorsum of the right foot, particularly with initial weight-bearing, requires investigation to rule out osseous pathology such as a bone spur. An X-ray of the right foot and a podiatry consultation are the appropriate next steps for diagnosis and management. Total Time Statement 20 min Total time spent caring for the patient today includes pre-visit chart review, documentation, review of laboratory and diagnostic imaging results, medication reconciliation, medically necessary evaluation, counseling on diagnoses, care coordination, ordering appropriate tests and medications, review of tests performed by other providers, reporting test results to the patient, and communication with other healthcare providers. Orders: Orders RT home sleep study 09/20/25 G47.30 - Sleep apnea, unspecified XR foot RT min 3V 09/20/25 M79.671 - Pain in right foot Referrals Sleep Medicine Referral G47.30 - Sleep apnea, unspecified Podiatry Referral M79.671 - Pain in right foot
[2025-09-20 15:26] VITALS: BP 125/58; PULSE 79; RESP 20; TEMP 36.9; O2SAT 98; BMI 36.8
== END 2025-09-20 15:39 | disposition home or self-care (01) ==
LOC: HO.HMCFMS 15:05
PROVIDERS: PCP Student in an Organized Health Care Education/Training Program; Visit Provider Student in an Organized Health Care Education/Training Program
DX: G47.30 Sleep apnea, unspecified (principal); M79.671 Pain in right foot; E66.812 Obesity, class 2